=== PATIENT | male | born 1980 | race African-American/Black ===

== ENCOUNTER 2018-02-09 20:03 | Emergency (ER) | payer SELFPAY ==
[2018-02-09] MEDS ORDERED: IBUPROFEN 800 MG TABLET PO ONE (21:31)
--- NOTE | 2018-02-09 21:39 | ER Document Report ---
ED Flu Like - General Mode of Arrival: Ambulatory Information source: Patient TRAVEL OUTSIDE OF THE [place] IN LAST 30 DAYS: No - General Chief Complaint: Fever Stated Complaint: FEVER Time Seen by Provider: 02/09/18 21:31 Notes: Patient is a 38 year old male that presents to the emergency department today with complaints of right ear pain, sore throat, nasal congestion, and a cough. (ALLEGRA SCANLON) - Related Data Allergies/Adverse Reactions: No Known Allergies Allergy (Verified 02/09/18 20:04) Past Medical History - General Information source: Patient - Social History Smoking Status: Unknown if Ever Smoked Cigarette use (# per day): No Lives with: Family Family History: Reviewed & Not Pertinent Patient has suicidal ideation: No Patient has homicidal ideation: No - Medical History Medical History: Negative Renal/ Medical History: Denies: Hx Peritoneal Dialysis Surgical Hx: Negative - Immunizations Hx Diphtheria, Pertussis, Tetanus Vaccination: Yes Review of Systems - Review of Systems Constitutional: See HPI, Fever EENT: See HPI, Ear pain - right, Nose congestion, Throat pain Cardiovascular: No symptoms reported Respiratory: See HPI, Cough Gastrointestinal: No symptoms reported Genitourinary: No symptoms reported Male Genitourinary: No symptoms reported Musculoskeletal: No symptoms reported Skin: No symptoms reported Hematologic/Lymphatic: No symptoms reported Neurological/Psychological: No symptoms reported -: Yes All other systems reviewed and negative Physical Exam - Vital signs Vitals: Temp Pulse Resp BP Pulse Ox 101.2 F H 92 18 135/80 H 98 02/09/18 20:24 02/09/18 20:24 02/09/18 20:24 02/09/18 20:24 02/09/18 20:24 - Notes Notes: Physical Exam: General: Alert, appears well. HEENT: Normocephalic. Atraumatic. PERRL. Extraocular movements intact. Oropharynx clear. TMs are clear bilaterally without bulging. No palpable nodes. Neck: Supple. Non-tender. Respiratory: No respiratory distress. Clear and equal breath sounds bilaterally. Cardiovascular: Regular rate and rhythm. Abdominal: Normal Inspection. Non-tender. No distension. Normal Bowel Sounds. Back: Non-tender. No deformity or step off. Extremities: Moves all four extremities. Upper extremities: Normal inspection. Normal ROM. Lower extremities: Normal inspection. No edema. Normal ROM. Neurological: Normal cognition. AAOx4. Normal speech. Psychological: Normal affect. Normal Mood. Skin: Warm. Dry. Normal color. (ALLEGRA SCANLON) Course - Re-evaluation Re-evalutation: 02/09/18 22:58 Patient found to be influenza B positive discussed findings with patient. Discussed using ibuprofen and Tylenol alternating every 3 hours as needed for fever control. Will also provide albuterol puffer. I discussed return precautions including any worsening of symptoms or development of worsening cough with sputum production return for further evaluation. Patient understands and agrees with plan (KIKI SIMON) - Vital Signs Vital signs: Temp Pulse Resp BP Pulse Ox 99.1 F 86 16 125/84 98 02/09/18 23:00 02/09/18 23:00 02/09/18 23:00 02/09/18 23:00 02/09/18 23:00 Discharge - Discharge Clinical Impression: Influenza B Condition: Good Disposition: HOME, SELF-CARE Instructions: Influenza ([facility]) [id number] Additional Instructions: Please alternate ibuprofen and Tylenol every 3 hours for fever control or, you can alternate Advil Cold and Sinus and Tylenol for fever control. Please return the emergency department if worsening symptoms are any other concerns including copious amounts of sputum Forms: Return to Work Scribe Attestation: 02/17/18 07:58 I personally performed the services described in the documentation, reviewed and edited the documentation which was dictated to the scribe in my presence, and it accurately records my words and actions. (KIKI SIMON) Scribe Documentation - Scribe Written by Missaele:: Nelia Hayden, 02/09/2018 acting as scribe for :: Car
--- NOTE | 2018-02-09 22:29 | RADIOLOGY REPORT (SQ) ---
EXAM DESCRIPTION: CHEST 2 VIEWS COMPLETED DATE/TIME: 02/09/2018 10:03 pm REASON FOR STUDY: congestion COMPARISON: None. NUMBER OF VIEWS: Two view. TECHNIQUE: Frontal and lateral radiographic views of the chest acquired. LIMITATIONS: None. FINDINGS: LUNGS AND PLEURA: Peribronchial cuffing and interstitial changes. No consolidation, effus ion, or pneumothorax. MEDIASTINUM AND HILAR STRUCTURES: No masses. No contour abnormalities. HEART AND VASCULAR STRUCTURES: Heart normal in size and contour. No evidence for failure. BONES: No acute findings. HARDWARE: None in the chest. OTHER: No other significant finding. IMPRESSION: REACTIVE AIRWAY DISEASE VERSUS VIRAL SYNDROME. NO CONSOLIDATION. TECHNICAL DOCUMENTATION: JOB ID: [id number] [id number] 2010 [employer]- All Rights Reserved Reading location - IP/workstation name: [employer]
[2018-02-09 22:41] LABS: A TYPE INFLUENZA AG NEGATIVE (NEGATIVE); B INFLUENZA AG POSITIVE (NEGATIVE)
[2018-02-09 23:13] VITALS: BP 125/84
[2018-02-09] MEDS ORDERED: ALBUTEROL SULFATE HFA (90 MCG/PUFF) 200 PUFF/8.5 GM MDI IH ONE (23:13)
== END 2018-02-09 23:25 | disposition home or self-care (01) ==
LOC: ER 20:03
DX: J10.1 Influenza due to other identified influenza virus with other respiratory manifestations (principal); R50.9 Fever, unspecified; H92.01 Otalgia, right ear; R09.81 Nasal congestion; R05 Cough
CPT/HCPCS: 99284; 87070; 87880; 87804; 71046; J3490